=== PATIENT | female | born 1965 | race African-American/Black ===

== ENCOUNTER 2021-11-20 18:51 | Emergency (ER) | payer OTHER ==
[~2021-11-20 18:51] MED LIST: AMOXICILLIN 50500 M1 PO; BACTRIM DS TAB1 EACH PO; CLARITIN10 MG PO; FLEXERIL PO; FLONASE16 GM NS; MACROBID 100 M100 M1 PO; NO HOME MEDS; NORCO 5-325 TA1 EACH PO; PYRIDIUM200 MG PO; TRAMADOL 50 MG50 MG PO; VICODIN 5-5001 EACH PO; ZOFRAN ODT4 MG PO
== END 2021-11-20 21:00 | disposition left against medical advice (07) ==
LOC: ER 18:51
DX: M79.672 Pain in left foot (principal); Z53.21 Procedure and treatment not carried out due to patient leaving prior to being seen by health care provider